=== PATIENT | female | born 1965 | race Caucasian/White ===

== ENCOUNTER 2020-09-29 11:44 | Observation (INO) ==
[2020-09-29] MEDS ORDERED: Ondansetron 4 MG/2 ML VIAL IVP ONE (11:54)
[2020-09-29] MEDS ORDERED: 0.9 % Sodium Chloride 1,000 ML IVC ONE (11:54)
[2020-09-29 12:20] LABS: Bacteria,Urine Few per hpf (None-Few); Bilirubin,Urine Negative (Negative); Blood,Urine Large (Negative); Clarity,Urine Turbid (Clear); Color,Urine Yellow (Yellow); Glucose,Urine (UA) Normal (Normal); Ketones,Urine 10 mg/dL (Negative); Leukocyte Esterase,Urine Moderate (Negative); Nitrite,Urine Negative (Negative); Protein,Urine 100 mg/dL (Neg-Trace); Specific Gravity,Urine > 1.030 (1.010-1.025); Squamous Epithelial Cell,Urine Moderate per hpf (None-Few); Urobilinogen,Urine Normal (Normal); WBC,Urine 30-50 per hpf (0-3)
[2020-09-29 12:27] LABS: Basophils % 0.3 %; Eosinophils % 0.4 %; Hemoglobin 12.8 g/dL (11.5-15.4); Immature Granulocytes % 0.5 % (0-4); Lymphocytes # 0.8 K/mcL (0.6-4.6); Lymphocytes % 7.7 %; Mean Corpuscular HGB Conc 32.8 g/dL (31.6-35.5); Mean Corpuscular Hemoglobin 31.7 pg (28.0-33.3); Mean Corpuscular Volume 96.5 fL (83.0-100.0); Mean Platelet Volume 10.4 fL (9.4-12.4); Monocytes # 0.8 K/mcL (0.0-1.3); Monocytes % 7.9 %; Neutrophils # 8.8 K/mcL (1.6-8.9); Platelet Count 251 K/mcL (140-400); Red Blood Count 4.04 M/mcL (3.82-4.97); Red Cell Distribution Width 13.7 % (11.5-14.5); Segmented Neutrophils % 83.2 %; White Blood Count 10.5 K/mcL (4.3-11.1)
[2020-09-29 12:49] LABS: BUN/Creatinine Ratio 13 (6-26); Blood Urea Nitrogen 13 mg/dL (6-20); Calcium 9.4 mg/dL (8.6-10.3); Carbon Dioxide 25 mEq/L (23-29); Chloride 99 mEq/L (98-107); Glucose 198 mg/dL (70-105); Osmolality,Calculated 288 (280-300); Potassium 3.6 mEq/L (3.5-5.1); Sodium 136 mEq/L (136-145); eGFR For African Americans > 60 (> 60); eGFR For Non-African Americans 57 (> 60)
[2020-09-29] MEDS ORDERED: Doxycycline 100 MG in 0.9 % Sodium Chloride Mini Bag 100 ML IVPB ONE (13:03)
[2020-09-29] MEDS ORDERED: cefOXitin 2,000 MG in Water for inj. (sterile) 20 ML IVP ONE (13:03)
[2020-09-29] MEDS: 0.9 % Sodium Chloride 1,000 ML IVC SCH ×2 (14:16→18:43)
[2020-09-29 14:33] LABS: Adenovirus Not Detected (Not Detect); Bordetella Pertussis Not Detected (Not Detect); Chlamydophila pneumoniae Not Detected (Not Detect); Coronavirus 229E Not Detected (Not Detect); Coronavirus HKU1 Not Detected (Not Detect); Coronavirus NL63 Not Detected (Not Detect); Coronavirus OC43 Not Detected (Not Detect); Human Metapneumovirus Not Detected (Not Detect); Human Rhinovirus/Enterovirus Not Detected (Not Detect); Influenza A Subtype 2009 H1 Not Detected (Not Detect); Influenza B Not Detected (Not Detect); Mycoplasma pneumoniae Not Detected (Not Detect); Parainfluenza Virus 1 Not Detected (Not Detect); Parainfluenza Virus 2 Not Detected (Not Detect); Parainfluenza Virus 3 Not Detected (Not Detect); Parainfluenza Virus 4 Not Detected (Not Detect); Respiratory Syncytial Virus Not Detected (Not Detect); SARS-CoV-2 Not Detected (Not Detect)
[2020-09-29] MEDS ORDERED: *HR* Dextrose 50 % in Water (Vial) 50 ML VIAL IVP PRN (17:56)
[2020-09-29] MEDS ORDERED: Dextrose Gel 15 GM/37.5 ML TUBE PO PRN ×2 (17:56)
[2020-09-29] MEDS ORDERED: D5% in Water 1,000 ML IVC PRN (17:56)
[2020-09-29] MEDS ORDERED: Diphenoxylate/Atropine 1 TAB TABLET PO PRN (17:58)
[2020-09-29] MEDS ORDERED: 0.9 % Sodium Chloride 1,000 ML IVC SCH (18:00)
[2020-09-29] MEDS: *HR* OxyCODONE/APAP 5/325 TABLET PO PRN (18:42)
[2020-09-29] MEDS: *HR* Metformin 500 MG TABLET PO SCH (18:52)
[2020-09-29] MEDS: Insulin LISPRO 300 UNITS/3 ML VIAL SUBQ SCH (18:54)
[2020-09-29] MEDS ORDERED: Morphine Sulfate 2 MG/ML SYRINGE IVP ONE (20:07)
[2020-09-30] MEDS: *HR* OxyCODONE/APAP 5/325 TABLET PO PRN ×3 (00:03→10:54)
[2020-09-30] MEDS: 0.9 % Sodium Chloride 1,000 ML IVC SCH ×3 (00:04→20:34)
[2020-09-30] MEDS: cefOXitin 1,000 MG in 0.9 % Sodium Chloride Mini Bag 100 ML IVPB SCH ×3 (00:04→16:10)
[2020-09-30] MEDS: Insulin LISPRO 300 UNITS/3 ML VIAL SUBQ SCH ×4 (00:49→18:07)
[2020-09-30] MEDS: Doxycycline 100 MG in 0.9 % Sodium Chloride Mini Bag 100 ML IVPB SCH ×2 (01:39→13:35)
[2020-09-30 05:15] LABS: Basophils % 0.1 %; Eosinophils % 0.2 %; Hematocrit 34.4 % (35.3-44.9); Immature Granulocytes % 0.5 % (0-4); Lymphocytes % 10.8 %; Mean Corpuscular HGB Conc 31.1 g/dL (31.6-35.5); Mean Corpuscular Hemoglobin 30.8 pg (28.0-33.3); Mean Corpuscular Volume 99.1 fL (83.0-100.0); Mean Platelet Volume 10.5 fL (9.4-12.4); Monocytes # 0.7 K/mcL (0.0-1.3); Neutrophils # 7.7 K/mcL (1.6-8.9); Platelet Count 227 K/mcL (140-400); Red Blood Count 3.47 M/mcL (3.82-4.97); Segmented Neutrophils % 81.4 %; White Blood Count 9.4 K/mcL (4.3-11.1)
[2020-09-30 05:16] LABS: Hemoglobin 10.7 g/dL (11.5-15.4)
[2020-09-30 05:34] LABS: BUN/Creatinine Ratio 10 (6-26); Blood Urea Nitrogen 10 mg/dL (6-20); Calcium 8.4 mg/dL (8.6-10.3); Carbon Dioxide 26 mEq/L (23-29); Chloride 102 mEq/L (98-107); Glucose 169 mg/dL (70-105); Osmolality,Calculated 287 (280-300); Potassium 3.5 mEq/L (3.5-5.1); Sodium 137 mEq/L (136-145); eGFR For African Americans > 60 (> 60); eGFR For Non-African Americans 55 (> 60)
[2020-09-30] MEDS: *HR* Metformin 500 MG TABLET PO SCH ×2 (08:25→16:56)
[2020-09-30] MEDS: Furosemide 20 MG TABLET PO SCH (08:32)
[2020-09-30] MEDS: lisinopriL 5 MG TABLET PO SCH (08:32)
[2020-09-30] MEDS: Loratadine 10 MG TABLET PO SCH (08:34)
[2020-09-30] MEDS ORDERED: *HR* Glimepiride 2 MG TABLET PO SCH (09:00)
[2020-09-30] MEDS: Simethicone 80 MG TAB.CHEW PO PRN (10:58)
[2020-09-30] MEDS ORDERED: Acetaminophen 325 MG TABLET PO ONE (18:12)
[2020-10-01] MEDS: cefOXitin 1,000 MG in 0.9 % Sodium Chloride Mini Bag 100 ML IVPB SCH ×2 (00:02→07:50)
[2020-10-01] MEDS: Insulin LISPRO 300 UNITS/3 ML VIAL SUBQ SCH ×3 (00:12→12:05)
[2020-10-01] MEDS: Doxycycline 100 MG in 0.9 % Sodium Chloride Mini Bag 100 ML IVPB SCH (01:09)
[2020-10-01] MEDS: 0.9 % Sodium Chloride 1,000 ML IVC SCH (05:38)
[2020-10-01] MEDS ORDERED: Acetaminophen 325 MG TABLET PO ONE (06:26)
[2020-10-01] MEDS ORDERED: Albuterol 2.5 MG/3 ML NEBULIZER IH PRN (06:36)
[2020-10-01] MEDS ORDERED: Albuterol 2.5 MG/3 ML NEBULIZER IH ONE (06:53)
[2020-10-01] MEDS ORDERED: Levalbuterol Neb 1.25 MG/3 ML ONE (07:01)
[2020-10-01 07:10] LABS: Hemoglobin 10.4 g/dL (11.5-15.4); Mean Corpuscular HGB Conc 32.5 g/dL (31.6-35.5); Mean Corpuscular Hemoglobin 31.3 pg (28.0-33.3); Mean Corpuscular Volume 96.4 fL (83.0-100.0); Mean Platelet Volume 9.9 fL (9.4-12.4); Platelet Count 224 K/mcL (140-400); Red Blood Count 3.32 M/mcL (3.82-4.97); Red Cell Distribution Width 14.2 % (11.5-14.5); White Blood Count 10.6 K/mcL (4.3-11.1)
[2020-10-01] MEDS: *HR* Metformin 500 MG TABLET PO SCH ×2 (07:51→16:50)
[2020-10-01] MEDS: Loratadine 10 MG TABLET PO SCH (07:51)
[2020-10-01] MEDS: Furosemide 20 MG TABLET PO SCH (07:52)
[2020-10-01] MEDS: lisinopriL 5 MG TABLET PO SCH (07:52)
[2020-10-01 08:30] LABS: Basophils # 0.2 K/mcL (0.0-0.2); Lymphocytes # 0.9 K/mcL (0.6-4.6); Monocytes # 0.2 K/mcL (0.0-1.3); Neutrophils # 9.3 K/mcL (1.6-8.9); Toxic Granulation Present (Not Present)
[2020-10-01 08:31] LABS: Platelet Estimate Normal (Normal)
[2020-10-01] MEDS ORDERED: 0.9 % Sodium Chloride 1,000 ML IVC SCH (09:26)
[2020-10-01] MEDS: Piperacillin/Tazobactam 3.375 GM in 0.9 % Sodium Chloride Mini Bag 100 ML IVPB SCH (15:37)
[2020-10-01] MEDS: *HR* OxyCODONE/APAP 5/325 TABLET PO PRN ×2 (15:53→21:44)
[2020-10-01] MEDS: *HR* Glimepiride 2 MG TABLET PO SCH (16:50)
[2020-10-02] MEDS: Piperacillin/Tazobactam 3.375 GM in 0.9 % Sodium Chloride Mini Bag 100 ML IVPB SCH ×3 (00:46→16:13)
[2020-10-02] MEDS: *HR* OxyCODONE/APAP 5/325 TABLET PO PRN ×3 (06:18→21:18)
[2020-10-02] MEDS: *HR* Metformin 500 MG TABLET PO SCH ×2 (08:20→16:14)
[2020-10-02] MEDS: Loratadine 10 MG TABLET PO SCH (08:20)
[2020-10-02] MEDS: lisinopriL 5 MG TABLET PO SCH (08:20)
[2020-10-02] MEDS: Furosemide 20 MG TABLET PO SCH (08:20)
[2020-10-02] MEDS: Simethicone 80 MG TAB.CHEW PO PRN (13:48)
[2020-10-02] MEDS: *HR* Glimepiride 2 MG TABLET PO SCH (16:14)
[2020-10-02] MEDS ORDERED: Acetaminophen 325 MG TABLET PO PRN (18:12)
[2020-10-03] MEDS: Piperacillin/Tazobactam 3.375 GM in 0.9 % Sodium Chloride Mini Bag 100 ML IVPB SCH ×2 (00:31→08:47)
[2020-10-03] MEDS: *HR* Metformin 500 MG TABLET PO SCH (08:45)
[2020-10-03] MEDS: lisinopriL 5 MG TABLET PO SCH (08:46)
[2020-10-03] MEDS: Loratadine 10 MG TABLET PO SCH (08:46)
[2020-10-03] MEDS: Furosemide 20 MG TABLET PO SCH (08:47)
[2020-10-03 12:00] VITALS: BP 134/81
== END 2020-10-03 14:05 | disposition home or self-care (01) ==
LOC: EMEROOARM 11:44 → 1NENUOBS 11:44
PROVIDERS: ADMIT Obstetrics & Gynecology; ATTEND Obstetrics & Gynecology

== ENCOUNTER 2020-11-11 22:31 | Observation (INO) ==
[2020-11-11] MEDS ORDERED: 0.9 % Sodium Chloride 1,000 ML IVC ONE (22:43)
[2020-11-11] MEDS ORDERED: Ondansetron 4 MG/2 ML VIAL IVP ONE (23:00)
[2020-11-11 23:15] LABS: Basophils % 0.2 %; Eosinophils % 0.2 %; Hematocrit 34.8 % (35.3-44.9); Hemoglobin 10.8 g/dL (11.5-15.4); Immature Granulocytes % 0.5 % (0-4); Lymphocytes # 0.4 K/mcL (0.6-4.6); Lymphocytes % 3.3 %; Mean Corpuscular Hemoglobin 28.7 pg (28.0-33.3); Mean Corpuscular Volume 92.6 fL (83.0-100.0); Mean Platelet Volume 9.1 fL (9.4-12.4); Monocytes # 0.1 K/mcL (0.0-1.3); Monocytes % 0.8 %; Neutrophils # 12.2 K/mcL (1.6-8.9); Platelet Count 406 K/mcL (140-400); Red Blood Count 3.76 M/mcL (3.82-4.97); Red Cell Distribution Width 14.6 % (11.5-14.5); White Blood Count 12.8 K/mcL (4.3-11.1)
[2020-11-11 23:23] LABS: INR 1.2; Prothrombin Time 13.6 Seconds (9.4-12.1)
[2020-11-11 23:26] LABS: Activated Partial Thrombo Time 25.1 Seconds (26.0-36.0)
[2020-11-11 23:37] LABS: Alanine Aminotransferase 13 Units/L (7-52); Albumin 4.1 g/dL (3.5-5.7); Albumin/Globulin Ratio 1.1 (1.1-2.2); Alkaline Phosphatase 106 Units/L (34-104); Aspartate Amino Transferase 16 Units/L (13-39); BUN/Creatinine Ratio 12 (6-26); Bilirubin,Direct 0.4 mg/dL (0.0-0.2); Bilirubin,Indirect 1.1 mg/dL (0.0-1.0); Bilirubin,Total 1.5 mg/dL (0.3-1.0); Blood Urea Nitrogen 12 mg/dL (6-20); Calcium 8.9 mg/dL (8.6-10.3); Carbon Dioxide 24 mEq/L (23-29); Chloride 98 mEq/L (98-107); Globulin 3.8 g/dL (2.4-3.5); Glucose 189 mg/dL (70-105); Osmolality,Calculated 289 (280-300); Potassium 3.4 mEq/L (3.5-5.1); Sodium 137 mEq/L (136-145); Total Protein 7.9 g/dL (6.4-8.9); Troponin I < 0.03 ng/mL (< 0.04); eGFR For African Americans > 60 (> 60); eGFR For Non-African Americans 56 (> 60)
[2020-11-12] MEDS ORDERED: Piperacillin/Tazobactam 3.375 GM in 0.9 % Sodium Chloride Mini Bag 100 ML IVPB ONE (00:30)
[2020-11-12] MEDS ORDERED: 0.9 % Sodium Chloride 1,000 ML IVC ONE (00:30)
[2020-11-12] MEDS ORDERED: Isovue-370 500 ML BOTTLE IVP ONE (00:36)
[2020-11-12 01:35] LABS: Adenovirus Not Detected (Not Detect); Bordetella Pertussis Not Detected (Not Detect); Chlamydophila pneumoniae Not Detected (Not Detect); Coronavirus 229E Not Detected (Not Detect); Coronavirus HKU1 Not Detected (Not Detect); Coronavirus NL63 Not Detected (Not Detect); Coronavirus OC43 Not Detected (Not Detect); Human Metapneumovirus Not Detected (Not Detect); Human Rhinovirus/Enterovirus Not Detected (Not Detect); Influenza A Subtype 2009 H1 Not Detected (Not Detect); Influenza B Not Detected (Not Detect); Mycoplasma pneumoniae Not Detected (Not Detect); Parainfluenza Virus 1 Not Detected (Not Detect); Parainfluenza Virus 2 Not Detected (Not Detect); Parainfluenza Virus 3 Not Detected (Not Detect); Parainfluenza Virus 4 Not Detected (Not Detect); Respiratory Syncytial Virus Not Detected (Not Detect); SARS-CoV-2 Not Detected (Not Detect)
[2020-11-12 03:18] LABS: Bilirubin,Urine Negative (Negative); Blood,Urine Negative (Negative); Clarity,Urine Clear (Clear); Color,Urine Yellow (Yellow); Glucose,Urine (UA) Normal (Normal); Ketones,Urine Trace mg/dL (Negative); Leukocyte Esterase,Urine Trace (Negative); Nitrite,Urine Negative (Negative); PH,Urine 5.5 pH Units (5.0-8.0); Protein,Urine 70 mg/dL (Neg-Trace); Specific Gravity,Urine > 1.030 (1.010-1.025); Squamous Epithelial Cell,Urine Few per hpf (None-Few); Urobilinogen,Urine Normal (Normal)
[2020-11-12] MEDS ORDERED: Ringers Solution, Lactated 1,000 ML IVC SCH (06:31)
[2020-11-12] MEDS ORDERED: Ondansetron 4 MG/2 ML VIAL IVP PRN (06:31)
[2020-11-12] MEDS ORDERED: Naloxone 0.4 MG/ML INJ IVP PRN (06:31)
[2020-11-12] MEDS: *HR* Metformin 500 MG TABLET PO SCH ×2 (07:49→19:11)
[2020-11-12] MEDS: *HR* Glimepiride 2 MG TABLET PO SCH ×2 (07:49→19:11)
[2020-11-12] MEDS: Piperacillin/Tazobactam 3.375 GM in 0.9 % Sodium Chloride Mini Bag 100 ML IVPB SCH ×2 (07:50→16:04)
[2020-11-12] MEDS ORDERED: Vancomycin 1,750 MG/517.5 ML IV.SOLN IVPB ONE (08:00)
[2020-11-12] MEDS ORDERED: Furosemide 20 MG TABLET PO SCH (09:00)
[2020-11-12] MEDS ORDERED: lisinopriL 5 MG TABLET PO SCH (09:00)
[2020-11-12] MEDS ORDERED: metroNIDAZOLE 500 MG TABLET PO SCH (09:23)
[2020-11-12] MEDS: *HR* HYDROcodone/Acet 5/325 mg TABLET PO PRN ×2 (10:08→14:27)
[2020-11-12 21:11] VITALS: BP 133/70
== END 2020-11-12 22:37 | disposition short-term general hospital (02) ==
LOC: EMEROOARM 22:31 → 1NENUOBS 22:31
PROVIDERS: ADMIT Obstetrics & Gynecology; ATTEND Obstetrics & Gynecology